=== PATIENT | female | born 1940 | race Caucasian/White ===

== ENCOUNTER → 2017-07-19 | Outpatient (CLI) | payer OTHER ==
[~2017-07-19] VITALS: Ht 172.7 cm; Wt 71.2 kg
[~2017-07-19] MED LIST: ARICEPT 5 MG TAB5 MG PO; NORVASC5 MG PO; SYNTHROID25 MCG PO; UNICOMPLEX M TA1 TA1 PO
[2017-07-19 13:11] VITALS: BP 126/69
== END ==
LOC: SEN 12:50
DX: G31.84 Mild cognitive impairment of uncertain or unknown etiology (principal); I10 Essential (primary) hypertension; E03.9 Hypothyroidism, unspecified

== ENCOUNTER → 2017-11-23 | Outpatient (CLI) | payer OTHER | LOC: MRI 13:41 | DX: G31.89 Other specified degenerative diseases of nervous system (principal); M47.892 Other spondylosis, cervical region ==